=== PATIENT | male | born 1955 ===

== ENCOUNTER 2019-02-25 08:50 | Emergency (ER) | payer OTHER ==
[~2019-02-25] VITALS: Ht 177.8 cm; Wt 78.5 kg
== END 2019-02-25 12:30 | disposition home or self-care (01) ==
LOC: ER 08:50
DX: J11.1 Influenza due to unidentified influenza virus with other respiratory manifestations (principal)

== ENCOUNTER 2022-11-23 20:56 | Emergency (ER) | payer OTHER ==
[~2022-11-23] VITALS: Ht 175.3 cm; Wt 81.6 kg
== END 2022-11-23 23:55 | disposition home or self-care (01) ==
LOC: ER 20:56
DX: B34.9 Viral infection, unspecified (principal)

== ENCOUNTER 2025-10-02 11:15 | Outpatient (CLI) | payer OTHER | END 2025-10-02 11:16 | disposition home or self-care (01) | LOC: MRI 11:15 | PROVIDERS: ATTEND Family Medicine | DX: G57.00 Lesion of sciatic nerve, unspecified lower limb (principal); M54.51 Vertebrogenic low back pain | CPT/HCPCS: 72148 ==